=== PATIENT | male | born 1980 | race Two or more races ===

== ENCOUNTER 2020-02-02 09:00 | Outpatient (CLI) | payer BC | END 2020-02-02 23:59 | disposition home or self-care (01) | LOC: LAB 09:00 | PROVIDERS: ATTEND Specialist | DX: Z01.812 Encounter for preprocedural laboratory examination (principal); Z20.828 Contact with and (suspected) exposure to other viral communicable diseases | CPT/HCPCS: 87426; C9803 ==

== ENCOUNTER 2020-02-05 06:52 | Inpatient (IN) | payer BC ==
[~2020-02-05] VITALS: Ht 175.3 cm; Wt 86.2 kg
[2020-02-05] MEDS ORDERED: PROPOFOL 0 ML ONE (07:53)
--- NOTE | 2020-02-05 08:22 | NUR ---
MS RN NOTES Faxed Pre-Op meds to pharmacy at this time.
[2020-02-05] MEDS ORDERED: HYDROCODONE/APAP 10/325MG TABLET PO PRN (08:30)
[2020-02-05] MEDS ORDERED: diphenhydrAMINE HCL 25 MG CAPSULE PO PRN (08:30)
[2020-02-05] MEDS ORDERED: MENTHOL/CETYLPYRD (CEPACOL) 1 LOZ LOZENGE PO PRN (08:30)
[2020-02-05] MEDS ORDERED: ONDANSETRON HCL/PF 4 MG/2 ML VIAL IV PRN (08:30)
[2020-02-05] MEDS ORDERED: HYDROCODONE/APAP 5/325MG TABLET PO PRN (08:30)
[2020-02-05] MEDS ORDERED: MAG HYDROX/AL HYDROX/SIMETH 30 ML UDC PO PRN (08:30)
[2020-02-05] MEDS ORDERED: MAGNESIUM HYDROXIDE 30 ML UDC PO PRN (08:30)
[2020-02-05] MEDS ORDERED: ACETAMINOPHEN 325 MG TABLET PO PRN (08:30)
[2020-02-05] MEDS ORDERED: MORPHINE SULFATE INJ 4 MG/ML DISP.SYRIN IM PRN (08:30)
[2020-02-05] MEDS ORDERED: PROPOFOL 100 ML ONE (08:47)
[2020-02-05] MEDS ORDERED: HYDROMORPHONE INJ 2 MG/ML DISP.SYRIN ONE (08:48)
[2020-02-05] MEDS ORDERED: MIDAZOLAM HCL 2 MG/2ML VIAL ONE (08:48)
[2020-02-05] MEDS ORDERED: ROCURONIUM BROMIDE 50 MG/5 ML ONE (08:48)
[2020-02-05] MEDS ORDERED: FAMOTIDINE/PF INJ 20 MG/2 ML VIAL IV ONE (08:59)
[2020-02-05] MEDS ORDERED: FAMOTIDINE (20 MG) 20 MG TABLET PO SCH (09:00)
[2020-02-05] MEDS ORDERED: DOCUSATE SODIUM 100 MG CAPSULE PO SCH (09:00)
--- NOTE | 2020-02-05 09:00 | NUR ---
MS RN NOTES Received Patient resting in bed. A/O x 4. VS stable with no acute distress. Breathing even and unlabored on room air with no respiratory distress. Patient stated tolerable chronic back pain. Will continue to monitor. Inserted 18g PIV on LFA clean, intact, patent and flushing well. Safety precautions in place. Bed locked and set to lowest pso Addendum: 02/05/20 at 1122 by FABIAN LAMBERT RN INCOMPLETE DOCUMENTATION set to lowest position with side rails x 2 up. All needs rendered at this time. Call light within reach. Will continue to monitor.
[2020-02-05] MEDS ORDERED: CEFAZOLIN 1 GM ONE (09:03)
[2020-02-05] MEDS ORDERED: LIDOCAINE MPF 1%-EPI 1:200,000 30 ML VIAL IJ ONE (09:03)
[2020-02-05] MEDS ORDERED: BUPIVACAINE 0.25% 75 MG/30 ML VIAL ONE (09:03)
--- NOTE | 2020-02-05 10:18 | NUR ---
MS ROW BOSS HOEING NOTES Patient discharged for home at this time. Lumbar Disk Arthroplasty rescheduled for Sunday at [facility]. Patient in stable condition. VS stable with no acute distress. Breathing even and unlabored on room air with no respiratory distress. Patient stated tolerable chronic pain on lower back. Provided Serafina prescription. Skin intact. Discharge orders reviewed and explained to Patient. Patient verbalized understanding. All belongings with Patient. Patient will follow up with PCP today. Escorted Patient to the Lobby for safety. Patient picked up by family.
== END 2020-02-05 11:00 | disposition home or self-care (01) | DRG 552 ==
LOC: DS 06:52 → MED 06:55
PROVIDERS: ADMIT Specialist; ATTEND Internal Medicine
DX: M51.16 Intervertebral disc disorders with radiculopathy, lumbar region (principal); Z53.8 Procedure and treatment not carried out for other reasons; G89.29 Other chronic pain
CPT/HCPCS: G0378; J0690; J1170; J2250; J3490